=== PATIENT | male | born 1945 | race Caucasian/White ===

== ENCOUNTER 2022-04-26 17:45 | Emergency (ER) | payer MEDICARE ==
[~2022-04-26] VITALS: Ht 172.7 cm; Wt 79.4 kg
[2022-04-26 18:12] LABS: HEMATOCRIT 42.9 % (36.7-47.1); MEAN CORPUSCULAR HEMOGLOBIN 31.1 uug (23.8-33.4); MEAN CORPUSCULAR VOLUME 94.7 fL (73.0-96.2); PLATELET COUNT (AUTO) 230 K/uL (152-348)
--- NOTE | 2022-04-26 18:12 | NUR ---
76 years old male walk in to er c/o pain with urination denies nausea vomiting.
[2022-04-26 18:34] LABS: CREATININE 1.2 mg/dL (0.6-1.3); POTASSIUM 3.8 mmol/L (3.5-5.1)
--- NOTE | 2022-04-26 19:08 | NUR ---
Pt. in bed [id number], with family at bedside
[2022-04-26 19:13] LABS: *BILIRUBIN,URIN NEGATIVE (NEGATIVE); *BLOOD, URINE 2+ (NEGATIVE); *CLARITY,URINE CLEAR (CLEAR); *COLOR,URINE YELLOW (YELLOW); *KETONES,URINE NEGATIVE (NEGATIVE); *UROBILINOGEN,URINE 0.2 E.U./dl (NORMAL); LEUKOCYTE ESTERASE ,URINE NEGATIVE (NEGATIVE); NITRITE, URINE NEGATIVE (NEGATIVE); UGLUCOSE NEGATIVE (NEGATIVE)
[2022-04-26 19:26] LABS: WBC,URINE 0-3 /HPF (0-3)
[2022-04-26] MEDS ORDERED: CYANOCOBALAMIN 1000 MCG/ML VIAL IM ONE (19:30)
[2022-04-26] MEDS ORDERED: CYANOCOBALAMIN 1000 MCG/ML VIAL ONE (19:34)
--- NOTE | 2022-04-26 19:58 | NUR ---
Patient discharged to home in stable condition. Written and verbal after care instructions given. Patient verbalizes understanding of instructions. Stressed follow up or return to ER for worsening s/s.
[2022-04-26] MEDS ORDERED: MECO10006 IM (19:59)
[2022-04-26] MEDS ORDERED: SYRI-29 MC (19:59)
[2022-04-26 20:01] VITALS: BP 122/80
== END 2022-04-26 20:05 | disposition home or self-care (01) ==
LOC: ER 17:50
DX: R35.0 Frequency of micturition (principal); E53.8 Deficiency of other specified B group vitamins; F03.90 Unspecified dementia, unspecified severity, without behavioral disturbance, psychotic disturbance, mood disturbance, and anxiety; F09 Unspecified mental disorder due to known physiological condition; R31.29 Other microscopic hematuria; Z98.890 Other specified postprocedural states
CPT/HCPCS: 99283; 80048; 81001; 83735; 85025; 36415; 96372; J3420; A4663